=== PATIENT | female | born 1990 | race Caucasian/White ===

== ENCOUNTER 2016-08-13 07:39 | Emergency (ER) | payer SELFPAY ==
--- NOTE | 2016-08-15 11:08 | ER ---
ADMIT: 08/13/2016 RM/LOC: ER [facility] MR#: [id number] [id number] BHUMI RODGERS [address] [place] [address] Emergency Room Report SEX: F AGE: 26 : 1990 DATE: 08/13/2016 ADDENDUM: This patient comes into the ER because she has a large swelling on her right labia that started 2 days ago. On physical exam, she has a large fluctuant abscess on the right labia that is tender to palpation. She has difficulty ambulating. She was initially seen by Dr. Bolaños. CBC was 12.9. Her glucose was elevated at 297 and she has no history of having diabetes. She was given morphine IV for pain. I did an I and D and expressed quite a bit of purulent discharge. She was given Bactrim and Keflex and [place]. I did consult with Dr. Bolaños concerning treatment of this patient. I also informed her about her elevated glucose level and she will need to follow up with Dr. Bruner. I also put packing in the abscess and she needs to see Dr. Bruner on Thursday to have it removed. Please see my T-sheet. KATHLEEN Block / Mehran Bolaños MD / modl JOB #: [id number] CC: Mehran Bolaños MD, Attending Physician Mimi Bruner MD, Family Physician
== END 2016-08-13 10:40 | disposition home or self-care (01) ==
LOC: ER 07:39
DX: N76.4 Abscess of vulva (principal)